=== PATIENT | male | born 1935 | race Native Hawaiian/Other Pacific Islander ===

== ENCOUNTER 2016-12-09 14:00 | Outpatient (CLI) | payer OTHER, BC ==
[~2016-12-09 14:00] MED LIST: AMLO5TAB PO; BENA20TA2 PO; PANT40TA PO; SIMV20TA2 PO; TAMS0.4C PO
[2016-12-09 14:59] LABS: PLATELET COUNT 240 K/uL (142-355)
[2016-12-09 15:13] LABS: POTASSIUM 4.8 mmol/L (3.6-5.2); SODIUM 139 mmol/L (136-145)
== END 2016-12-09 19:54 | disposition home or self-care (01) ==
LOC: LAB 14:00
PROVIDERS: Nurse Practitioner Family
DX: I10 Essential (primary) hypertension (principal); E78.4 Other hyperlipidemia; N40.0 Benign prostatic hyperplasia without lower urinary tract symptoms; K21.9 Gastro-esophageal reflux disease without esophagitis; I25.10 Atherosclerotic heart disease of native coronary artery without angina pectoris; Z79.899 Other long term (current) drug therapy; Z51.81 Encounter for therapeutic drug level monitoring
CPT/HCPCS: 80053; 80061; 83036; 84439; 84443; 85027

== ENCOUNTER 2018-06-16 13:20 | Outpatient (CLI) | payer OTHER, BC | END 2018-06-16 22:30 | disposition home or self-care (01) | LOC: CT 13:20 | DX: R10.817 Generalized abdominal tenderness (principal); R10.32 Left lower quadrant pain ==

== ENCOUNTER 2018-11-29 10:33 | Emergency (ER) | payer OTHER, BC ==
[~2018-11-29] VITALS: Ht 167.6 cm; Wt 77.1 kg
[2018-11-29 10:46] VITALS: TEMP 99
[2018-11-29 11:34] LABS: PLATELET COUNT 204 K/uL (142-355)
[2018-11-29 12:42] VITALS: BP 144/84
== END 2018-11-29 12:42 | disposition home or self-care (01) ==
LOC: ED 10:33
PROVIDERS: Family Medicine
PROC: 0T9B70Z Drainage of Bladder with Drainage Device, Via Natural or Artificial Opening (ICD-10-PCS; principal; 2018-11-29)
DX: N13.8 Other obstructive and reflux uropathy (principal)
CPT/HCPCS: 80053; 81000; 85027; 99282

== ENCOUNTER 2018-12-11 10:39 | Outpatient (CLI) | payer OTHER, BC | END 2018-12-11 23:59 | disposition home or self-care (01) | LOC: CT 10:39 | DX: R31.0 Gross hematuria (principal) ==

== ENCOUNTER 2019-05-05 10:17 | Outpatient (CLI) | payer OTHER, MEDICARE | END 2019-05-05 23:46 | disposition home or self-care (01) | LOC: US 10:17 | DX: R10.31 Right lower quadrant pain (principal) ==

== ENCOUNTER 2020-04-25 19:26 | Emergency (ER) | payer OTHER, MEDICARE ==
[~2020-04-25] VITALS: Ht 167.6 cm; Wt 77.1 kg
[2020-04-25 21:25] VITALS: BP 140/84; TEMP 99.1
== END 2020-04-25 21:25 | disposition home or self-care (01) ==
LOC: ED 19:26
PROC: 0T9B70Z Drainage of Bladder with Drainage Device, Via Natural or Artificial Opening (ICD-10-PCS; principal; 2020-04-25)
DX: R33.8 Other retention of urine (principal); N40.1 Benign prostatic hyperplasia with lower urinary tract symptoms
CPT/HCPCS: 51702; 81000; 99282

== ENCOUNTER 2020-07-03 19:43 | Emergency (ER) | payer OTHER, MEDICARE ==
[~2020-07-03] VITALS: Ht 167.6 cm; Wt 77.1 kg
[2020-07-03 20:18] LABS: PLATELET COUNT 297 K/uL (142-355)
[2020-07-03 20:30] LABS: POTASSIUM 3.7 mmol/L (3.6-5.2)
[2020-07-03 22:05] VITALS: BP 128/66; TEMP 98.7
== END 2020-07-03 22:05 | disposition home or self-care (01) ==
LOC: ED 19:43
PROVIDERS: Hospitalist
PROC: 0T9B70Z Drainage of Bladder with Drainage Device, Via Natural or Artificial Opening (ICD-10-PCS; principal; 2020-07-03)
DX: R33.8 Other retention of urine (principal); N40.1 Benign prostatic hyperplasia with lower urinary tract symptoms
CPT/HCPCS: 36415; 51702; 80048; 81000; 85027; 99283

== ENCOUNTER 2020-08-14 09:21 | Emergency (ER) | payer OTHER, MEDICARE ==
[~2020-08-14] VITALS: Ht 167.6 cm; Wt 77.1 kg
[2020-08-14 09:27] VITALS: BP 121/75; TEMP 98.9
== END 2020-08-14 10:37 | disposition home or self-care (01) ==
LOC: ED 09:21
PROC: 0T9B70Z Drainage of Bladder with Drainage Device, Via Natural or Artificial Opening (ICD-10-PCS; principal; 2020-08-14)
DX: R33.8 Other retention of urine (principal)
CPT/HCPCS: 51702; 81000; 99283

== ENCOUNTER 2020-08-21 17:52 | Emergency (ER) | payer OTHER, MEDICARE ==
[~2020-08-21] VITALS: Ht 167.6 cm; Wt 79.4 kg
[2020-08-21 20:09] VITALS: BP 142/84; TEMP 97.9
== END 2020-08-21 20:10 | disposition home or self-care (01) ==
LOC: ED 17:52
PROC: 0T9B70Z Drainage of Bladder with Drainage Device, Via Natural or Artificial Opening (ICD-10-PCS; principal; 2020-08-21)
DX: N40.1 Benign prostatic hyperplasia with lower urinary tract symptoms (principal); N13.8 Other obstructive and reflux uropathy
CPT/HCPCS: 51702; 81000; 87077; 87086; 87088; 87186; 99283

== ENCOUNTER 2020-10-18 16:00 | Outpatient (CLI) | payer OTHER, MEDICARE | END 2020-10-18 23:56 | disposition home or self-care (01) | LOC: INF 16:00 | PROVIDERS: ATTEND Internal Medicine | DX: Z23 Encounter for immunization (principal) | CPT/HCPCS: 96372 ==

== ENCOUNTER 2020-10-26 12:37 | Outpatient (CLI) | payer OTHER, MEDICARE | END 2020-10-26 23:46 | disposition home or self-care (01) | LOC: RAD 12:37 | PROVIDERS: ATTEND Nurse Practitioner Family | DX: Z00.00 Encounter for general adult medical examination without abnormal findings (principal); I10 Essential (primary) hypertension; E78.49 Other hyperlipidemia; K21.9 Gastro-esophageal reflux disease without esophagitis; N40.0 Benign prostatic hyperplasia without lower urinary tract symptoms; M85.88 Other specified disorders of bone density and structure, other site ==

== ENCOUNTER 2020-11-15 14:18 | Outpatient (CLI) | payer OTHER, MEDICARE | END 2020-11-15 22:03 | disposition home or self-care (01) | LOC: INF 14:18 | PROVIDERS: ATTEND Internal Medicine | DX: Z23 Encounter for immunization (principal) | CPT/HCPCS: 96372 ==

== ENCOUNTER 2020-11-28 12:49 | Outpatient (CLI) | payer OTHER, MEDICARE | END 2020-11-28 20:15 | disposition home or self-care (01) | LOC: RAD 12:49 | PROVIDERS: ATTEND Nurse Practitioner Family | DX: I10 Essential (primary) hypertension (principal); E78.49 Other hyperlipidemia; K21.9 Gastro-esophageal reflux disease without esophagitis; R35.1 Nocturia; R05 Cough ==

== ENCOUNTER 2022-02-28 13:36 | Outpatient (CLI) | payer OTHER, MEDICARE | END 2022-02-28 18:59 | disposition home or self-care (01) | LOC: RAD 13:36 | PROVIDERS: ATTEND Physician Assistant | DX: M25.562 Pain in left knee (principal) ==

== ENCOUNTER 2023-06-16 09:27 | Outpatient (CLI) | payer OTHER, MEDICARE | END 2023-06-16 21:23 | disposition home or self-care (01) | LOC: US 09:27 | PROVIDERS: ATTEND Specialist | DX: N28.1 Cyst of kidney, acquired (principal) ==